=== PATIENT | female | born 1960 | race Two or more races ===

== ENCOUNTER 2021-02-10 04:27 | Emergency (ER) | payer SELFPAY ==
[~2021-02-10] VITALS: Ht 139.7 cm; Wt 99.8 kg
[2021-02-10] MEDS ORDERED: EPINEPHrine HCL 1 MG/10 ML SYRG IV ONE (04:28)
[2021-02-10] MEDS ORDERED: SODIUM BICARBONATE 8.4% INJ 50ML SYRINGE IV ONE (04:28)
[2021-02-10 04:31] VITALS: BP 0/0
[2021-02-10] MEDS ORDERED: ALTEPLASE (RECOMBINANT) 100 MG ONE (04:44)
== END 2021-02-10 04:52 ==
LOC: EDBD 04:27 → ER 04:27
DX: I46.9 Cardiac arrest, cause unspecified (principal)
CPT/HCPCS: 31500; 92950; 99285; J0171; J2997